=== PATIENT | female | born 1945 ===

== ENCOUNTER 2023-06-03 00:04 | Observation (INO) | payer OTHER ==
[~2023-06-03] VITALS: Ht 165.1 cm; Wt 63.9 kg
[2023-06-03 01:03] VITALS: BP 109/46; PULSE 72; RESP 18; TEMP 97.8; O2SAT 97
[2023-06-03] MEDS ORDERED: MORPHINE SULFATE INJ 2 MG/ml SYRG IV PRN (01:45)
[2023-06-03] MEDS ORDERED: ONDANSETRON HCL 4 MG/2 ML VIAL IV PRN (01:45)
[2023-06-03] MEDS ORDERED: MELATONIN 5 MG TAB PO PRN (01:45)
[2023-06-03] MEDS ORDERED: ACETAMINOPHEN 325 MG TAB PO PRN (01:45)
[2023-06-03] MEDS ORDERED: DOCUSATE SOD 100 MG CAP PO PRN (01:45)
[2023-06-03] MEDS ORDERED: NITROGLYCERIN 0.4 MG SL TAB SL PRN (01:45)
[2023-06-03] MEDS ORDERED: SODIUM CHLORIDE 0.9% 1,000 ML IV SCH (01:45)
[2023-06-03 02:40] VITALS: PULSE 70
[2023-06-03] MEDS ORDERED: SODIUM CHLORIDE 0.9% 500 ML IV SCH (03:30)
[2023-06-03] MEDS ORDERED: LEVO100T8 PO (03:57)
[2023-06-03] MEDS ORDERED: MONT-8 PO (03:57)
[2023-06-03 05:00] VITALS: BP 109/46; PULSE 72; RESP 18; TEMP 97.8; O2SAT 97
[2023-06-03 06:59] LABS: Basophils # (auto) 0 10 ^3/uL (0-0.2); Basophils % (auto) 0.8 % (0.0-2.0); Eosinophils # (auto) 0.1 10 ^3/uL (0-0.8); Eosinophils % (auto) 1.7 % (0.0-7.0); Hematocrit 41.1 % (36.0-46.0); Hemoglobin 13.5 g/dL (12.2-16.2); Lymphocytes # (auto) 0.8 10 ^3/uL (0.4-5.4); Lymphocytes % (auto) 15.7 % (10.0-50.0); Mean Corpuscular Hemoglobin 27.6 pg (28.0-32.0); Mean Corpuscular Hgb Conc. 32.9 g/dL (32.0-36.0); Monocytes # (auto) 0.5 10 ^3/uL (0-1.3); Monocytes % (auto) 9.4 % (0.0-12.0); Neutrophils # (auto) 3.9 10 ^3/uL (1.6-8.6); Neutrophils % (auto) 72.4 % (37.0-80.0); Nucleated Red Blood Cells % 0.1 %; Red Cell Distribution Width 14.1 % (11.8-14.3); White Blood Cell 5.4 10^3/uL (4.4-10.8)
[2023-06-03 07:22] LABS: BUN/Creatinine Ratio 35.9 (10.0-20.0); Calcium 9.1 mg/dL (8.5-10.1)
[2023-06-03 08:00] VITALS: BP 133/65; PULSE 72; RESP 18; TEMP 97.8; O2SAT 97
[2023-06-03] MEDS ORDERED: PANTOPRAZOLE 40 MG/10 ML VIAL INJ IV SCH (10:00)
[2023-06-03] MEDS ORDERED: ENOXAPARIN SOD 40 MG/0.4 ML SYRINGE SC SCH (10:00)
== END 2023-06-03 11:04 | disposition left against medical advice (07) ==
LOC: TELE-WESTW 01:03 → UNDOADMIN 01:03 → TELE-WESTW 01:48
PROVIDERS: ADMIT Nurse Practitioner Family; ATTEND Nurse Practitioner Family
DX: R55 Syncope and collapse (principal); S09.90XA Unspecified injury of head, initial encounter; E03.9 Hypothyroidism, unspecified; R41.82 Altered mental status, unspecified; R41.3 Other amnesia; W19.XXXA Unspecified fall, initial encounter; Y92.89 Other specified places as the place of occurrence of the external cause; Y93.89 Activity, other specified; Y99.8 Other external cause status
CPT/HCPCS: 36415; 80048; 85025; G0378